=== PATIENT | male | born 1980 | race Caucasian/White ===

== ENCOUNTER 2019-09-01 18:02 | Emergency (ER) | payer MEDICAID ==
[~2019-09-01] VITALS: Ht 180.3 cm; Wt 79.4 kg
[2019-09-01 18:06] VITALS: BP 115/77
[2019-09-01] MEDS ORDERED: NACL 0.9% 1,000 ML IV ONE (18:20)
[2019-09-01] MEDS ORDERED: KETOROLAC 30 MG/ML VIAL IVP ONE (18:20)
[2019-09-01] MEDS ORDERED: LORazepam 2 MG/ML VIAL IVP ONE (19:40)
[2019-09-01] MEDS ORDERED: LIDOCAINE/EPI 1% 1:100000 20 ML VIAL INJ ONE (19:45)
[2019-09-01] MEDS ORDERED: MAGNESIUM HYDROXIDE 2400 MG/30 ML UDC ONE (20:14)
[2019-09-01] MEDS ORDERED: LIDOCAINE VISCOUS 2% 20 ML UDC ONE (20:15)
[2019-09-01] MEDS ORDERED: DICYCLOMINE HCL LIQUID 20 MG, ALUMINUM HYD/MAG/SIMETHICONE 30 ML, LIDOCAINE VISCOUS 2% ... PO ONE ×3 (20:20)
[2019-09-01] MEDS ORDERED: DICYCLOMINE HCL LIQUID 10 MG/5 ML UDC ONE (20:22)
[2019-09-01 20:31] LABS: BARBITURATE, URINE NEG. ng/ml (NEG <=200); BENZODIAZEPINE, URINE NEG. ng/mL (NEG <=200); CANNABINOID, URINE NEG. ng/mL (NEG <=50); COCAINE, URINE NEG. ng/mL (NEG <=300); OPIATE, URINE NEG. ng/mL (NEG <=2000); PHENCYCLIDINE SCREEN,URINE NEG. ng/mL (NEG <=25)
[2019-09-01] MEDS ORDERED: NEOMYCIN/POLYMYXIN/BACITRACIN 0.9 GM/1 PKT TP ONE (21:20)
[2019-09-01 22:20] VITALS: BP 120/70
== END 2019-09-01 22:20 | disposition home or self-care (01) ==
LOC: MED 18:02
DX: L02.811 Cutaneous abscess of head [any part, except face] (principal); F15.10 Other stimulant abuse, uncomplicated; Z88.0 Allergy status to penicillin
CPT/HCPCS: 10060; 80305; 96374; 96375; 99284; J1885; J2001; J2060; J7030

== ENCOUNTER 2019-12-13 14:37 | Emergency (ER) | payer MEDICAID ==
[~2019-12-13] VITALS: Ht 180.3 cm; Wt 78.5 kg
[2019-12-13 14:45] VITALS: BP 114/81
--- NOTE | 2019-12-13 14:51 | NUR ---
ASSISTED PT TO WAIT IN THE LOBBY.
--- NOTE | 2019-12-13 15:15 | NUR ---
PT TAKEN TO CHAIR B.
--- NOTE | 2019-12-13 15:18 | NUR ---
PT IS HERE FOR CLEARANCE FROM ABSCESS ON OCCIPITAL AREA FOR DRUG REHAB. PT WAS SEEN HERE 1.5 MONTH AGO WITH DX OF ABSCESS AND HAD I&D PERFORMED. WHEN PT INITIALLY PRESENTED TO DRUG REHAB, SKIN WAS OPEN AND REHAB REQUESTED FOR MEDICAL CLEARANCE PRIOR TO ENROLLMENT. OCCIPITAL AREA SKIN IS INTACT NOW. PT DENIES F/C, DRAINAGE, SWELLING. PRESENTS TODAY REQUESTING FOR MEDICAL CLEARANCE. PMH: METH ABUSE, SUICIDE IDEATION MEDS: DENIES
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
== END 2019-12-13 16:17 | disposition left against medical advice (07) ==
LOC: MED 14:37
DX: M54.9 Dorsalgia, unspecified (principal)